=== PATIENT | female | born 1950 | race Caucasian/White ===

== ENCOUNTER → 2019-06-12 09:31 | Outpatient (CLI) | payer OTHER | END | disposition home or self-care (01) | LOC: LAB 09:31 | DX: D68.0 Von Willebrand disease (principal) ==

== ENCOUNTER 2019-06-23 14:18 | Outpatient (CLI) | payer OTHER | END 2019-06-23 14:23 | disposition home or self-care (01) | LOC: LAB 14:18 → EKG 14:18 | DX: R55 Syncope and collapse (principal) ==

== ENCOUNTER → 2019-07-23 | Outpatient (CLI) | payer OTHER | END | disposition home or self-care (01) | LOC: NUCLEAR 10:12 | DX: M15.0 Primary generalized (osteo)arthritis (principal); M81.0 Age-related osteoporosis without current pathological fracture ==